=== PATIENT | female | born 1970 | race Caucasian/White ===

== ENCOUNTER 2017-11-16 20:11 | Emergency (ER) | payer SELFPAY ==
[~2017-11-16] VITALS: Ht 162.6 cm; Wt 135.9 kg
[~2017-11-16 20:11] MED LIST: ALBU1NEB10 INH; ALBUAER2 INH; BUPR150T5 PO; CITA40TA4 PO; CLON1TAB3 PO; ERGO1CAP35 PO; FLUT220A INH; HYDCR1CL TOP; HYDR-4852 PO; INSDGI SC; METF-80 PO; OMEP40CA41 PO; PRAV40TA2 PO; TRAZ100T29 PO; VALA1TAB PO
[2017-11-16 20:15] VITALS: TEMP 36.3; Ht 162.6 cm; Wt 135.9 kg
[2017-11-16] MEDS ORDERED: MAGNESIUM SULFATE 1GM / D5W 1 GM BAG IV STA (20:33)
[2017-11-16] MEDS ORDERED: METHYLPREDNISOLONE 125 MG VIAL IV STA (20:33)
[2017-11-16] MEDS ORDERED: SODIUM CHLORIDE 0.9% 1000ML 1,000 ML IV STA (20:33)
--- NOTE | 2017-11-16 20:40 | EMERGENCY ROOM VISIT NOTE ---
History Report prepared by Rohan: Nasir Watters Under the Supervision of: Dr. Jose Luis Escobar M.D. First contact with patient: 20:29 Chief Complaint: SINUS CONGESTION/PRESSURE Stated Complaint: BRONCHITIS, SINUS INFECTION History of Present Illness The patient is a 46 year old female who presents to the Emergency Room with complaints of a cough that began 1 month ago. She has a past medical history of diabetes and asthma. At that time, the patient went to a hospital in [place] and was diagnosed with bronchitis and pneumonia. She was discharged with steroids and antibiotics. She finished her course of medications but her symptoms persisted so she went back and received a shot of steroids and a different antibiotic. She was doing well until about 1 week ago when her symptoms worsened again. She is experiencing chest tightness, a productive cough , shortness of breath, and sinus congestion. She denies any chest pain. Her sputum is dark in color. She has been using her asthma inhaler intermittently to help her breathe. Source of History: patient Onset: 1 month ago Position: other (Respiratory System) Symptom Intensity: moderate Quality: other (Cough) Timing: other (Persistent) Associated Symptoms: + cough, + SOB, No chest pain Note: She has chest tightness and sinus congestion. Review of Systems See HPI for pertinent positives and negatives. A total of ten systems were reviewed and were otherwise negative. Past Medical & Surgical Medical Problems: (1) Asthma, Unspecified (2) Dental caries (3) Diab Janice Wo Compl, Type Ii Or Unspec Type, Not Uncntrld (4) Endometriosis Nos (5) History of asthma (6) History Of Tobacco Use (7) Hypertension Nos (8) Influenza A (9) Lower Leg Injury Nos (10) Pain, dental (11) Suicidal ideation (12) Tattoo reaction (13) Tattoo reaction (14) Uterine Leiomyoma Nos (15) Vaginal candidiasis (16) Vulvovaginal candidiasis Family History Patient reports no known family medical history. Social History Smoking Status: Never Smoker Alcohol Use: none Drug Use: none Marital Status: Occupation Status: unemployed Current/Historical Medications Scheduled Bupropion Hcl (Bupropion Hcl Xl), 150 MG PO DAILY Fluticasone Propionate (Flovent Hfa), 2 PUFFS INH BID Insulin Glargine (Lantus), 70 UNITS SC HS Levofloxacin (Levaquin), 750 MG PO DAILY Metformin Hcl (Fortamet), 500 MG PO DAILY Omeprazole (Prilosec), 40 MG PO DAILY Pravastatin Sodium (Pravastatin Sodium), 40 MG PO HS Prednisone (Prednisone), 3 TAB PO DAILY Scheduled PRN Albuterol Hfa (Ventolin Hfa), 2 PUFFS INH Q4H PRN for Wheezing Albuterol Sulf (Proventil 0.083% 2.5MG/3ML), 2.5 MG INH Q4H PRN for Wheezing Hydrocortisone 1% (Hydrocortisone 1%), 1 APPLN TOP TID PRN for Rash Allergies Coded Allergies: Amoxicillin (Verified Allergy, Mild, RASH, 11/16/17) Physical Exam Vital Signs Date Time Temp Pulse Resp B/P (MAP) Pulse Ox O2 Delivery O2 Flow Rate FiO2 11/16/17 23:36 95 20 142/81 98 11/16/17 22:50 103 20 156/84 98 Room Air 11/16/17 21:32 95 11/16/17 21:28 90 20 95 Room Air 11/16/17 21:06 95 Nasal Cannula 11/16/17 20:32 95 Room Air 11/16/17 20:15 36.3 100 18 150/89 95 Room Air Physical Exam GENERAL: Awake, alert, uncomfortable-appearing, in no distress HENT: Normocephalic, atraumatic. Oropharynx dry mucous membranes. EYES: Normal conjunctiva. Sclera non-icteric. NECK: Supple. No nuchal rigidity. FROM. No JVD. RESPIRATORY: Scattered rhonchi and wheezes throughout. CARDIAC: Regular rate, normal rhythm. Extremities warm and well perfused. Pulses equal. ABDOMEN: Soft, non-distended. No tenderness to palpation. No rebound or guarding. No masses. RECTAL: Deferred. MUSCULOSKELETAL: Chest examination reveals no tenderness. The back is symmetrical on inspection without obvious abnormality. There is no CVA tenderness to palpation. No joint edema. LOWER EXTREMITIES: Calves are equal size bilaterally and non-tender. No edema. No discoloration. NEURO: Normal sensorium. No sensory or motor deficits noted. SKIN: No rash or jaundice noted. Medical Decision & Procedures ER Provider Diagnostic Interpretation: Radiology results as stated below per my review and radiologist interpretation: CHEST ONE VIEW PORTABLE CLINICAL HISTORY: 46 years-old Female presenting with CHEST PAIN. TECHNIQUE: Portable upright AP view of the chest was obtained. COMPARISON: 12/01/2013. FINDINGS: Cardiomediastinal silhouette normal. Lungs and pleural spaces clear. Degenerative changes of the thoracic spine. Upper abdomen normal. IMPRESSION: 1. No acute cardiopulmonary disease. Electronically signed by: Dave Farley M.D. 11/16/2017 9:09 PM Dictated Date/Time: 11/16/2017 9:08 PM Laboratory Results 11/16/17 20:50 Red Blood Count 4.49, Mean Corpuscular Volume 86.6, Mean Corpuscular Hemoglobin 29.0, Mean Corpuscular Hemoglobin Concent 33.4, Mean Platelet Volume 11.0, Neutrophils (%) (Auto) 66.0, Lymphocytes (%) (Auto) 21.9, Monocytes (%) (Auto) 4.5, Eosinophils (%) (Auto) 6.6, Basophils (%) (Auto) 0.4, Neutrophils # (Auto) 6.56, Lymphocytes # (Auto) 2.18, Monocytes # (Auto) 0.45, Eosinophils # (Auto) 0.66, Basophils # (Auto) 0.04 11/16/17 20:50 Test 11/16/17 20:50 White Blood Count 9.95 K/uL (4.8-10.8) Red Blood Count 4.49 M/uL (4.2-5.4) Hemoglobin 13.0 g/dL (12.0-16.0) Hematocrit 38.9 % (37-47) Mean Corpuscular Volume 86.6 fL (80-100) Mean Corpuscular Hemoglobin 29.0 pg (25-34) Mean Corpuscular Hemoglobin Concent 33.4 g/dl (32-36) Platelet Count 248 K/uL (130-400) Mean Platelet Volume 11.0 fL (7.4-10.4) Neutrophils (%) (Auto) 66.0 % Lymphocytes (%) (Auto) 21.9 % Monocytes (%) (Auto) 4.5 % Eosinophils (%) (Auto) 6.6 % Basophils (%) (Auto) 0.4 % Neutrophils # (Auto) 6.56 K/uL (1.4-6.5) Lymphocytes # (Auto) 2.18 K/uL (1.2-3.4) Monocytes # (Auto) 0.45 K/uL (0.11-0.59) Eosinophils # (Auto) 0.66 K/uL (0-0.5) Basophils # (Auto) 0.04 K/uL (0-0.2) RDW Standard Deviation 43.4 fL (36.4-46.3) RDW Coefficient of Variation 13.8 % (11.5-14.5) Immature Granulocyte % (Auto) 0.6 % Immature Granulocyte # (Auto) 0.06 K/uL (0.00-0.02) Anion Gap 7.0 mmol/L (3-11) Est Creatinine Clear Calc Drug Dose 107.5 ml/min Estimated GFR () 88.3 Estimated GFR (Non- 76.2 BUN/Creatinine Ratio 11.4 (10-20) Calcium Level 8.7 mg/dl (8.5-10.1) Total Bilirubin 0.2 mg/dl (0.2-1) Direct Bilirubin < 0.1 mg/dl (0-0.2) Aspartate Amino Transf (AST/SGOT) 17 U/L (15-37) Alanine Aminotransferase (ALT/SGPT) 30 U/L (12-78) Alkaline Phosphatase 171 U/L (45-117) Troponin I < 0.015 ng/ml (0-0.045) Total Protein 6.7 gm/dl (6.4-8.2) Albumin 3.2 gm/dl (3.4-5.0) Lipase 142 U/L (73-393) Laboratory results reviewed by me Medications Administered Medications (Trade) Dose Ordered Sig/Debbie Route Start Time Stop Time Status Last Admin Dose Admin Albuterol/ Ipratropium (Duoneb) 12 ml ONE ONCE INH 11/16/17 20:45 11/16/17 20:46 DC 11/16/17 20:45 12 ML Methylprednisolone Sodium Succinate (Solu-Medrol IV) 125 mg NOW STAT IV 11/16/17 20:33 11/16/17 20:38 DC 11/16/17 20:59 125 MG Sodium Chloride 1,000 ml @ 999 mls/hr Q1H1M STAT IV 11/16/17 20:33 11/16/17 21:33 DC 11/16/17 21:00 999 MLS/HR Magnesium Sulfate (Magnesium Sulfate) 2 gm NOW STAT IV 11/16/17 20:33 11/16/17 20:38 DC 11/16/17 20:59 2 GM Levofloxacin (Levaquin Tab) 750 mg NOW ONCE PO 11/16/17 22:00 11/16/17 22:01 DC 11/16/17 22:58 750 MG ECG Indication: SOB/dyspnea Rate (beats per minute): 97 Rhythm: normal sinus Findings: no acute ischemic change, other (normal axis) ED Course 2028: The patient was evaluated in room A2. A complete history and physical exam was performed. 7: The patient is doing mildly better. She still has half a nebulizer to go. 5: I reevaluated the patient. Discussed results and discharge instructions: She verbalized understanding and agreement. The patient is ready for discharge. Medical Decision I reviewed the patient's past medical history, medications, and the nursing notes as described above. Differential diagnosis includes but is not limited to: Pna, bronchitis, URI, asthma exacerbation, ACS, CHF, PE The patient is a 46-year-old woman with a past medical history of asthma who presents [facility] with worsening cough and congestion over the past week in the setting of persistent similar symptoms over the past month transiently improving with steroids and antibiotics outpatient per hpi. Arrival the patient is mildly uncomfortable but in no acute distress, afebrile stable vital signs. She has diffuse rhonchi and wheezes throughout, but saturating normally on room air. CXR negative for PNA. WBC and trop wnl. Labs otherwise unremarkable. Patient feeling improved after nebs and steroids. Findings and plan for follow-up reviewed with patient. Patient agreeable and d/c 'd per discharge instructions. Medication Reconcilliation Current Medication List: was personally reviewed by me Blood Pressure Screening Patient's blood pressure: Elevated blood pressure Blood pressure disposition: Referred to PCP Impression Primary Impression: Bronchitis Additional Impression: Acute asthma exacerbation Scribe Attestation The scribe's documentation has been prepared under my direction and personally reviewed by me in its entirety. I confirm that the note above accurately reflects all work, treatment, procedures, and medical decision making performed by me. Departure Information Dispostion Home / Self-Care Prescriptions Prednisone (Prednisone) 20 Mg Tab 3 TAB PO DAILY for 4 Days, #12 TAB FOR 4 DAYS Prov: Jose Luis Escobar M.D. 12/20/17 Levofloxacin (LEVAQUIN) 750 Mg Tab 750 MG PO DAILY for 4 Days, #4 TAB Prov: Jose Luis Escobar M.D. 11/16/17 Referrals No Doctor, Assigned (PCP) Forms HOME CARE DOCUMENTATION FORM, IMPORTANT VISIT INFORMATION, WORK / SCHOOL INSTRUCTIONS Patient Instructions Chest Cold (Bronchitis) - [facility], [facility] Additional Instructions Please follow up with your primary care physician in the next 1-3 days for re- evaluation. You likely have bronchitis in the setting of your asthma. Otherwise, your exam, EKG, chest xray, and lab results did not show signs of an emergent condition at this time. Levofloxacin and prednisone as directed. Use your inhaler or nebulizer every 4 hours for the next 48 hours scheduled and thereafter as needed. Return to the emergency department for worsening symptoms as described in the accompanying instructions. Problem Qualifiers
[2017-11-16] MEDS ORDERED: ALBUT/IPRATROP 3MG/0.5MG NEB 3 ML VIAL INH ONE (20:45)
[2017-11-16] MEDS ORDERED: VNTHFA/IN INH (20:59)
[2017-11-16 21:00] LABS: BASO % 0.4 %; BASO ABS # 0.04 K/uL (0-0.2); COMPLETE YES; EOS % 6.6 %; HEMATOCRIT 38.9 % (37-47); IG% 0.6 %; LYMPH % 21.9 %; LYMPH ABS # 2.18 K/uL (1.2-3.4); MEAN CELL VOLUME 86.6 fL (80-100); MEAN CORPUSCULAR HGB CONC 33.4 g/dl (32-36); MONO % 4.5 %; PLATELET COUNT 248 K/uL (130-400); RED BLOOD COUNT 4.49 M/uL (4.2-5.4); WHITE BLOOD COUNT 9.95 K/uL (4.8-10.8)
[2017-11-16] MEDS ORDERED: ALBINS/ INH (21:01)
[2017-11-16] MEDS ORDERED: FLVHFA110 INH (21:04)
[2017-11-16 21:06] VITALS: O2SAT 95
--- NOTE | 2017-11-16 21:10 | DIAGNOSTIC IMAGING REPORT ---
CHEST ONE VIEW PORTABLE CLINICAL HISTORY: 46 years-old Female presenting with CHEST PAIN. TECHNIQUE: Portable upright AP view of the chest was obtained. COMPARISON: 12/01/2013. FINDINGS: Cardiomediastinal silhouette normal. Lungs and pleural spaces clear. Degenerative changes of the thoracic spine. Upper abdomen normal. IMPRESSION: 1. No acute cardiopulmonary disease. Electronically signed by: Dave Farley M.D. 11/16/2017 9:09 PM Dictated Date/Time: 11/16/2017 9:08 PM
[2017-11-16 21:19] LABS: ALT/SGPT 30 U/L (12-78); BLOOD UREA NITROGEN 10 mg/dl (7-18); BUN/CREATININE RATIO 11.4 (10-20); CALCIUM 8.7 mg/dl (8.5-10.1); CARBON DIOXIDE 26 mmol/L (21-32); CHLORIDE 100 mmol/L (98-107); CREATININE 0.91 mg/dl (0.60-1.20); GLUCOSE 285 mg/dl (70-99); POTASSIUM 3.8 mmol/L (3.5-5.1); SODIUM 133 mmol/L (136-145)
[2017-11-16 21:24] LABS: ALKALINE PHOSPHATASE 171 U/L (45-117); AST/SGOT 17 U/L (15-37)
[2017-11-16 21:28] VITALS: PULSE 90; O2SAT 95
[2017-11-16] MEDS ORDERED: LEVOFLOXACIN 250 MG TAB PO ONE (22:00)
[2017-11-16] MEDS ORDERED: LEVO-18 PO (22:58)
[2017-11-16] MEDS ORDERED: PRED20TA PO (22:58)
[2017-11-16 23:36] VITALS: BP 142/81; PULSE 95; O2SAT 98
== END 2017-11-16 23:38 | disposition home or self-care (01) ==
LOC: C.EDB 20:12 → C.EDA 23:38
DX: J40 Bronchitis, not specified as acute or chronic (principal); J45.901 Unspecified asthma with (acute) exacerbation; E11.9 Type 2 diabetes mellitus without complications; N80.9 Endometriosis, unspecified; I10 Essential (primary) hypertension; D25.9 Leiomyoma of uterus, unspecified; Z87.891 Personal history of nicotine dependence; Z79.4 Long term (current) use of insulin; Z79.84 Long term (current) use of oral hypoglycemic drugs